=== PATIENT | male | born 1960 | race Caucasian/White ===

== ENCOUNTER 2018-05-05 05:53 | Day surgery (SDC) | payer BC ==
[~2018-05-05 05:53] MED LIST: CENTRUM SILVER1 EAC3 PO; FISH OIL 1,0001 CA1 PO; FLUTICASONE PRO16 GM NASAL; ZYRTEC10 MG PO
[2018-05-05] MEDS ORDERED: NIACIN250 M1 (06:47)
[2018-05-05] MEDS ORDERED: IBUPROFEN400 MG (06:48)
[2018-05-05] MEDS ORDERED: HYDROCODON-ACE1 EAC7 PO (09:08)
--- NOTE | 2018-05-05 13:07 | OP ---
PATIENT NAME: MARIA ANTONIA DUKES MEDICAL RECORD: [id number] LOCATION:D[facility] ADMISSION DATE: SURGEON: SIMI ORELLANA MD DATE OF OPERATION: 05/05/2018 SURGEON: Simi Orellana MD PREOPERATIVE DIAGNOSIS: Neck mass. POSTOPERATIVE DIAGNOSIS: Neck mass. PROCEDURE PERFORMED: Excisional biopsy of neck mass 8 x 5 x 5 cm. Case was clean. WOUND CLASS: Clean. ESTIMATED BLOOD LOSS: 20 cc. OPERATIVE COURSE: After consent was obtained, the patient was taken to the operating room and placed in the supine position on the operative table. Next, general anesthesia was given. The patient was placed on the prone position on the operating table. A time out was taken to confirm the correct patient and procedure. The posterior neck was prepped and draped in typical sterile fashion, 20 cc of lidocaine were administered. Skin was incised with 15-blade scalpel. Dissection then continued using Metzenbaum sharp scissor dissection until the mass was circumferentially dissected. The mass was a 8 x 5 x 5 cm. The capsule was nondisrupted, it was sent for permanent pathology. The wound bed was irrigated and suctioned. Hemostasis was obtained with electrocautery. It was closed in 3 layers. Deep subcutaneous tissue was closed with 3-0 Vicryl sutures, superficial subq was closed with 3-0 Vicryl suture. The skin was closed with 4-0 Stratafix, Mastisol, and Steri-Strips. At the end of the case, all needle and instrument corrects were correct. No complications occurred. The patient was extubated and transferred to the recovery room in satisfactory condition. TRANSINT:[id number] Voice Confirmation ID: [id number] DOCUMENT ID: [id number] SIMI ORELLANA MD at 1307 CC: [id number] DICTATION DATE: 05/05/18918 REGIONAL EDUCATION MANAGER: 05/05/18 1120 [facility] 05/05/[address] [address]
== END 2018-05-05 11:07 | disposition home or self-care (01) ==
LOC: D.OPS 05:53 → D.PAN 08:00 → D.OPS 11:07
PROVIDERS: ATTEND Surgery
DX: L72.0 Epidermal cyst (principal); Z01.812 Encounter for preprocedural laboratory examination